=== PATIENT | female | born 1965 | race Asian ===

== ENCOUNTER 2024-11-10 18:51 | Emergency (ER) | payer SELFPAY ==
[~2024-11-10] VITALS: Ht 167.6 cm; Wt 56.7 kg
[2024-11-10] MEDS ORDERED: HYDROCODONE/APAP 10-325 MG TABLET ONE (19:41)
[2024-11-10] MEDS ORDERED: ONDANSETRON ODT 4 MG TAB.RAPDIS ONE (19:41)
[2024-11-10] MEDS: HYDROCODONE/APAP 10-325 MG TABLET PO ONE (19:46)
[2024-11-10] MEDS: ONDANSETRON ODT 4 MG TAB.RAPDIS SL ONE (19:46)
[2024-11-10] MEDS ORDERED: ONDA4TAB11 PO (20:16)
[2024-11-10] MEDS ORDERED: HYDR-3980 PO (20:16)
[2024-11-10 20:35] VITALS: BP 107/78; O2SAT 98
== END 2024-11-10 20:52 | disposition home or self-care (01) ==
LOC: ER 18:51
DX: S52.531A Colles' fracture of right radius, initial encounter for closed fracture (principal); E03.9 Hypothyroidism, unspecified; Z90.89 Acquired absence of other organs; W01.0XXA Fall on same level from slipping, tripping and stumbling without subsequent striking against object, initial encounter; Y93.89 Activity, other specified; Y92.89 Other specified places as the place of occurrence of the external cause; Y99.8 Other external cause status
CPT/HCPCS: 73110; A4606; A4663; Q0162